=== PATIENT | female | born 1940 | race African-American/Black ===

== ENCOUNTER 2023-10-15 05:22 | Inpatient (IN) | payer MEDICARE, OTHER ==
[2023-10-15] VITALS (31 sets, daily range): BP systolic 110–141; BP diastolic 62–94; PULSE 67–94; RESP 14–26; TEMP 97–98.5
[~2023-10-15] VITALS: Ht 154.9 cm; Wt 35.8 kg
[~2023-10-15 05:22] MED LIST: ATEN50TA PO; HYDR50TA PO; MULT-1146 PO; OXYB5TAB17 PO; POTA-205 PO; VITAMIN D PO
[2023-10-15 07:00] LABS: CALCIUM 10.1 mg/dL (8.7-10.4); CARBON DIOXIDE 29 mEq/L (21-32); CHLORIDE 107 mEq/L (98-107); CREATININE 0.8 mg/dL (0.6-1.0); GLUCOSE 99 mg/dL (70-105); POTASSIUM 3.7 mEq/L (3.5-5.1); SODIUM 142 mEq/L (136-145); UREA NITROGEN BLOOD 16 mg/dL (9-23)
[2023-10-15] MEDS: LACTATED RINGERS 1,000 ML IV SCH (08:00)
[2023-10-15] MEDS ORDERED: BUPR-102 PO (08:31)
[2023-10-15] MEDS ORDERED: ACET-2708 PO (08:31)
[2023-10-15] MEDS ORDERED: THROMBIN (BOVINE) 5000 UNITS/VIAL TOP ONE (10:05)
[2023-10-15] MEDS ORDERED: LIDOCAINE HCL/EPINEPHRINE 1%-EPI 1:100,000 20 ML VIAL ONE (10:06)
[2023-10-15] MEDS ORDERED: GENTAMICIN SULF 40MG/ML 2ML VIAL ONE (10:06)
[2023-10-15] MEDS ORDERED: FENTANYL CITRATE/PF 50MCG/ML 2ML VIAL ONE (11:21)
[2023-10-15] MEDS ORDERED: MIDAZOLAM HCL 2 MG/2 ML VIAL ONE ×2 (11:21→13:17)
[2023-10-15] MEDS ORDERED: ROCURONIUM BROMIDE 10MG/ML VIAL 5ML IV ONE (11:21)
[2023-10-15] MEDS ORDERED: ETOMIDATE 2MG/ML 10ML VIAL IV ONE (11:21)
[2023-10-15] MEDS ORDERED: HYDROCODONE/ACETAMINOPHEN 5/325MG TABLET PO PRN (11:30)
[2023-10-15] MEDS ORDERED: NALOXONE HCL 0.4MG/ML VIAL IV PRN (11:45)
[2023-10-15] MEDS ORDERED: PROPOFOL 200MG/20ML VIAL IV ONE (12:14)
[2023-10-15] MEDS ORDERED: NEOSTIGMINE METHYLSULFATE 1MG/ML 10 ML VIAL ONE (12:37)
[2023-10-15] MEDS ORDERED: GLYCOPYRROLATE 0.2 MG/ML 2ML VIAL ONE ×2 (12:57→13:15)
[2023-10-15] MEDS: MORPHINE SULFATE 4 MG/ML CPJ (NOT FOR IM USE) IV PRN ×3 (13:46→18:46)
[2023-10-15] MEDS ORDERED: CEFAZOLIN SODIUM 1000MG/VIAL IV SCH (14:00)
[2023-10-15] MEDS: DEXT 5%/LACTATED RINGERS 1,000 ML IV SCH (14:07)
[2023-10-15] MEDS: DEXAMETHASONE 4MG/ML 1ML VIAL IV SCH ×2 (14:07→16:37)
[2023-10-15 16:00] LABS: EOSINOPHILS % 1.9 % (0.0-5.0); HEMOGLOBIN. 12.6 g/dL (12.0-16.0); LYMPHOCYTES % 26.2 % (20.0-50.0); MEAN CORPUSCULAR HEMOGLOBIN 31.7 pg (28.0-32.0); MEAN CORPUSCULAR HGB CONC 33.9 g/dL (31.0-37.0); MEAN CORPUSCULAR VOLUME 93.4 fL (81.0-99.0); MEAN PLATELET VOLUME 6.9 fl (7.4-10.4); MONOCYTES % 5.7 % (2.0-8.0); NEUTROPHILS % 65.2 % (40.0-76.0); PLATELET 274 x1000/uL (130-400); RED BLOOD CELL COUNT 3.97 mill/uL (4.2-5.4); RED CELL DISTRIBUTION WIDTH 13.7 % (11.6-14.6); WHITE BLOOD COUNT 7.1 x1000/uL (4.5-11.0)
[2023-10-15] MEDS ORDERED: NICARDIPINE 100 MG in SODIUM CHLORIDE 0.9% 60 ML IV PRN (16:00)
[2023-10-15] MEDS: CEFAZOLIN 1000MG PREMIX 50 ML IV SCH (16:32)
[2023-10-15] MEDS: ATENOLOL 50 MG TABLET PO SCH (16:32)
[2023-10-16] VITALS (37 sets, daily range): BP systolic 111–176; BP diastolic 64–94; PULSE 59–87; RESP 13–29; TEMP 97.6–98.3
[2023-10-16] MEDS: CEFAZOLIN 1000MG PREMIX 50 ML IV SCH ×3 (00:48→16:49)
[2023-10-16] MEDS: DEXAMETHASONE 4MG/ML 1ML VIAL IV SCH ×3 (00:48→12:59)
[2023-10-16] MEDS: DEXT 5%/LACTATED RINGERS 1,000 ML IV SCH ×3 (00:49→17:30)
[2023-10-16] MEDS: MORPHINE SULFATE 4 MG/ML CPJ (NOT FOR IM USE) IV PRN ×2 (01:31→19:43)
[2023-10-16] MEDS: HYDROCHLOROTHIAZIDE 25MG TABLET PO SCH (10:33)
[2023-10-16] MEDS: ATENOLOL 50 MG TABLET PO SCH ×2 (10:33→16:47)
[2023-10-16] MEDS: OXYBUTYNIN CHLORIDE 5MG TABLET PO SCH (16:48)
[2023-10-17] VITALS: BP 128/83; PULSE 76; RESP 20; TEMP 97.4
[2023-10-17 04:00] VITALS: BP 151/88; PULSE 58; RESP 19; TEMP 97.6
[2023-10-17] MEDS: LACTATED RINGERS 1,000 ML IV SCH (04:43)
[2023-10-17 08:00] VITALS: BP 158/81; PULSE 59; RESP 20; TEMP 97.7
[2023-10-17] MEDS: OXYBUTYNIN CHLORIDE 5MG TABLET PO SCH (09:06)
[2023-10-17] MEDS: ATENOLOL 50 MG TABLET PO SCH (09:07)
[2023-10-17] MEDS: HYDROCHLOROTHIAZIDE 25MG TABLET PO SCH (09:07)
[2023-10-17 09:08] VITALS: RESP 20
[2023-10-17 09:54] VITALS: BP 158/81; PULSE 59; TEMP 97.9; O2SAT 95
== END 2023-10-17 12:06 | disposition home or self-care (01) | DRG 471 ==
LOC: OR 05:22 → MICUSO 15:05 → 6EST 10-16 18:08
PROVIDERS: ADMIT Internal Medicine; ATTEND Neurological Surgery
PROC: 0RG10A0 Fusion of Cervical Vertebral Joint with Interbody Fusion Device, Anterior Approach, Anterior Column, Open Approach (ICD-10-PCS; principal; 2023-10-15)
PROC: 0RB30ZZ Excision of Cervical Vertebral Disc, Open Approach (ICD-10-PCS; 2023-10-15)
PROC: 00NW0ZZ Release Cervical Spinal Cord, Open Approach (ICD-10-PCS; 2023-10-15)
PROC: 4A11X4G Monitoring of Peripheral Nervous Electrical Activity, Intraoperative, External Approach (ICD-10-PCS; 2023-10-15)
DX: M48.02 Spinal stenosis, cervical region (principal); G82.50 Quadriplegia, unspecified; M47.12 Other spondylosis with myelopathy, cervical region; M50.01 Cervical disc disorder with myelopathy, high cervical region; I10 Essential (primary) hypertension; R26.89 Other abnormalities of gait and mobility; Z79.899 Other long term (current) drug therapy
CPT/HCPCS: 36415; 72040; 72141; 76000; 80048; 85025; 86850; 86900; 88311; 93005; 95863; 95925; 95926; 95928; 95929; 97116; 97162; 97530; J0690; J1100; J1580; J2250; J2270; J2704; J2710; J3010; J3490; J7121; L0172; C1713